=== PATIENT | male | born 1995 | race Caucasian/White ===

== ENCOUNTER 2024-02-26 09:42 | Emergency (ER) | payer OTHER, SELFPAY ==
--- NOTE | ~2024-02-26 | XR_ITS ---
Right wrist Technique: PA, oblique, lateral, and ulnar deviation views were obtained. Clinical History: Injury Findings: No acute fracture or dislocation is seen. Osseous alignment is anatomic. Joint spaces are p reserved. Soft tissues are unremarkable. Impression: Unremarkable right wrist radiographs. Reviewed, dictated and finalized at location . Impression: Unremarkable right wrist radiographs.
--- NOTE | 2024-02-26 10:00 | ED.UPPEXIN ---
HPI - Extremity Injury (Upper) General Chief Complaint: Extremity Injury, Upper Stated Complaint: right wrist injury Source: patient Mode of arrival: ambulatory Limitations: no limitations History of Present Illness HPI narrative: 28-year-old male presented for complaint of right wrist pain after injury last night. He states he tripped while walking in landed on the outstretched arm. Endorses abrasion to the palms and right elbow which he cleaned and applied a bandaid. Denies swelling, bruising, deformity, numbness, tingling or weakness of the hand. patient is right-hand dominant. Has not taken anything for pain. Related Data Home Medications Medication Instructions Recorded Confirmed bupropion HCl 100 mg tablet 100 mg PO DAILY afternoon 02/26/24 02/26/24 bupropion HCl 150 mg tablet,12 hr 150 mg PO DAILY 02/26/24 02/26/24 sustained-release estradiol 8 mg PO DAILY 02/26/24 02/26/24 methylphenidate HCl 40 mg PO DAILY 02/26/24 02/26/24 spironolactone 100 mg tablet 200 mg PO DAILY 02/26/24 02/26/24 Allergies Allergy/AdvReac Type Severity Reaction Status Date / Time No Known Allergies Allergy Verified 02/26/24 10:18 Review of Systems Review of Systems: CONSTITUTIONAL: Denies body aches, fever, chills CARDIOVASCULAR: Denies chest pain, palpitations, or edema. RESPIRATORY: Denies cough or dyspnea. GASTROINTESTINAL: Denies abdominal pain, nausea, vomiting, or diarrhea. SKIN: Denies rash, itching, or wounds. MUSCULOSKELETAL: reports right wrist pain Denies back pain, or myalgia. NEUROLOGIC: Denies numbness, tingling, or weakness. All systems reviewed & are unremarkable except as noted in HPI and below [facility] Comments At time of signature, I have reviewed and agree with nursing past medical, surgical, social and family history unless otherwise noted. Please see nursing chart for further information. There is no relevant family history pertinent to the presenting complaint Exam Narrative: GENERAL: Well-appearing CHEST: Speaks in full sentences. No respiratory distress. HEART: Regular rate and rhythm. Normal and equal peripheral pulses. EXTREMITIES: right hand has decreased strength, and decreased range of motion with flexion/extension/rotation due to endorses wrist pain with any movement. Normal hand sensation. Mild swelling to dorsal surface distal ulna. No ecchymosis, No point tenderness. No open wounds or obvious deformity; alignment normal, pulse palpable and equal bilaterally, skin warm, dry, pink. Capillary refill less than 3 seconds. SKIN: Warm, dry NEURO: Alert and oriented x3. PSYCH: Normal mood and affect Course Course Emergency Course: Patient is aware of diagnosis, understands and agrees to treatment plan. Anticipatory guidance given. Patient agrees to follow-up as directed and is aware of reasons to seek care at the emergency department. Portions of this record may have been created with voice recognition software Level of Care: Express Care Visit Vital Signs Vital signs: Vital Signs Temperature 98.3 F 02/26/24 10:02 Pulse Rate 74 02/26/24 10:02 Respiratory Rate 16 02/26/24 10:02 Blood Pressure 107/63 02/26/24 10:02 Pulse Oximetry 100 02/26/24 10:02 Oxygen Delivery Room Air 02/26/24 10:02 Temperature 98.3 F 02/26/24 10:02 Pulse Rate 74 02/26/24 10:02 Respiratory Rate 16 02/26/24 10:02 Blood Pressure 107/63 02/26/24 10:02 Pulse Oximetry 100 02/26/24 10:02 Oxygen Delivery Room Air 02/26/24 10:02 Reviewed MDM - Extremity Injury (Upper) MDM Narrative Medical decision making narrative: Discussed physical exam findings and reviewed x-ray. Kike wrap applied. No concern for tendon or nerve injury. Advised supportive measures and signs/symptoms to go to the ER. Pt is appropriate for outpt treatment and f/u. Differential Diagnosis Differential diagnosis: Likely sprain and strain of wrist and fracture of wrist Imaging Data [employer]
[2024-02-26 10:02] VITALS: BP 107/63; PULSE 74; RESP 16; TEMP 36.8; O2SAT 100
== END 2024-02-26 10:35 | disposition home or self-care (01) ==
PROVIDERS: Emergency Provider Nurse Practitioner Family
DX: S63.501A Unspecified sprain of right wrist, initial encounter (principal); S66.911A Strain of unspecified muscle, fascia and tendon at wrist and hand level, right hand, initial encounter; W01.0XXA Fall on same level from slipping, tripping and stumbling without subsequent striking against object, initial encounter; F41.9 Anxiety disorder, unspecified; F32.A Depression, unspecified; F90.9 Attention-deficit hyperactivity disorder, unspecified type
CPT/HCPCS: 73110; 99203; G0463